=== PATIENT | male | born 1985 | race Caucasian/White ===

== ENCOUNTER → 2017-10-25 | Day surgery (SDC) | payer OTHER ==
[~2017-10-25] MED LIST: BUPIVACAINE/EPINEPHRINE 0.5% PF 30 ML VIAL ONE; KETOROLAC TROMETHAMINE 30 MG/ML (IVP) VIAL IV PUSH ONE; LACTATED RINGER'S 1000 ML INJ 1,000 ML ONE; LIDOCAINE 1%/EPINEPHrine 1:100,000 SOLN 30 ML VIAL ONE; MIDAZOLAM HCL 2 MG/2 ML VIAL ONE; ONDANSETRON HCL 4 MG/2 ML VIAL IV PUSH ONE; PROPOFOL 200 MG/20 ML AMP IV ONE; ceFAZolin 2 GM PREMIX 50 ML ONE; oxyCODONE/ACETAMINOPHEN 5 MG/325 MG TAB ONE
--- NOTE | 2017-10-26 23:40 | MP ---
cc: Mega Kurtz MD, Lars S MD DATE OF OPERATION: 10/25/2017 PREOPERATIVE DIAGNOSIS: Left inguinal hernia, large. POSTOPERATIVE DIAGNOSIS: Left inguinal hernia, large. PROCEDURE PERFORMED: Open left inguinal hernia repair with a 3 x 6 mesh. SURGEON: Mega Kurtz MD STAFFING ASSOCIATE: Fly Ortiz MD ANESTHESIA: GETA IV FLUIDS: See anesthesia sheet. ESTIMATED BLOOD LOSS: 5 mL DRAINS: None. COMPLICATIONS: None. WOUND CLASSIFICATION: Clean. SPECIMENS: None. FINDINGS: Large indirect hernia, reducible. Good hemostasis. DETAILS OF PROCEDURE: The patient was taken to the operating suite, placed in supine position. He was prepped and draped in the usual sterile fashion after induction of general endotracheal anesthesia. A brief timeout done stating correct patient, procedure, surgical site and we were all in agreement with this. Attention was first directed to the left groin. The landmarks were identified, which was the ASIS and the pubic tubercle. ____ an oblique incision slightly diagonal was made approximately 5 cm in length. This was done with a 15 blade prior to incision and local anesthetic injected. Further dissection was done with electro Bovie electrocautery down to the external oblique fascia. The fascia was incised using a 15 blade to make a small sheryl incision and then using Metzenbaum scissors ____ to the superficial inguinal ring and then proximal toward the ASIS ____ to open up the external oblique fascia and the ilioinguinal nerve was identified and preserved. Further dissection was done bluntly. Identification of the pubic tubercle was done. The sac was mobilized and a [place] was placed in order to isolate the sac and cord structures. Further dissection was done in order to identify this sac in the medial anterior position and the sac noted to be very large. The contents of the hernia sac were reduced as well. Once the sac was completely mobilized, the sac was ligated with a 3-0 Vicryl suture. Next, obtaining of a 3 x 6 synthetic mesh was done. This was cut to size cutting the corners proximally off in order to have a more rounded appearance and be more anatomical. The 0 [address] was used to place interrupted tack sutures first to the pubic tubercle, then to the shelving edge laterally. Next, the medial mesh part was placed. A cut was made for the cord structures to lie comfortably in between it in a keyhole fashion. This was done on the lateral edge. Interrupted sutures done to the conjoined tendon. Next, the 2 lateral leaflets were cut to appropriate size and sewn together in order to create the deep ring. Next, the external oblique was reapproximated using a 3-0 Vicryl suture. Following this, the wound was closed in layers, Miguel's with 3-0 Vicryl followed by subcuticular 3-0 Vicryl and 4-0 Monocryl running suture. Sterile dressings were placed. Once the wound was ____ also noted palpation in order to identify any femoral or direct defects were done. There was no evidence of these. The patient tolerated procedure well. No intraoperative complication. All lap and instrument counts were correct at the end of procedure. Next, an ilioinguinal nerve block was done using 0.25% Marcaine. The ASIS was palpated and noted 1 cm anterior and inferior. The local anesthetic was then injected through the fascial layers in order to fully infiltrate the nerves and give assist in complete block. Next, sterile dressings were placed. The patient tolerated the procedure well. There were no intraoperative complications. All lap and instrument counts were correct at the end of the procedure. The patient was extubated and taken stable to PACU. MD DEBRA Lucia//manuel , 08:19 PM , 08:44 PM
== END | disposition home or self-care (01) ==
LOC: ESDC 11:09
PROVIDERS: ATTEND Surgery
DX: K40.90 Unilateral inguinal hernia, without obstruction or gangrene, not specified as recurrent (principal)
CPT/HCPCS: 00830; 49505; C1781; J0690; J1885; J2250; J2405; J3010; J7120